=== PATIENT | male | born 1990 | race Caucasian/White ===

== ENCOUNTER 2023-01-13 23:22 | Emergency (ER) | payer OTHER, SELFPAY ==
[2023-01-13 23:25] VITALS: BP 154/88; PULSE 96; RESP 18; TEMP 37.3; O2SAT 98; BMI 23.6
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
--- NOTE | 2023-01-13 23:57 | CT_ITS ---
The [address] [address] Patient Name: ROSANGELA LAZO MRN: [id number] date: 1990 Sex: M Assigned Patient Location: ER Current Patient Location: ER Accession/Order Number: [id number] Exam Date: 01/13/2023 23:59 Report Date: 01/14/2023 00:40 At the request of: VEENA OLIVAREZ Procedure: CT chest wo con EXAM: CT CHEST WITHOUT CONTRAST HISTORY: Shortness of breath COMPARISON: None. TECHNIQUE: Multiple axial images are taken from the level the thyroid down to the upper abdomen without the use of IV contrast. Images were then reconstructed in the sagittal and coronal planes. This exam was performed according to our departmental dose-optimization program which includes use of Automated Exposure Control, adjustment of the mA and/or kV according to patient size and/or use of iterative reconstruction technique. FINDINGS: Evaluation limited due to lack of IV contrast. Lines and tubes: None. Lungs: Lungs are hyperexpanded with bronchiectasis. Calcifications are seen in the posterior left lung / granulomas demonstrated. Trachea/Main Bronchi: Well aerated. No intraluminal mass. Esophagus: Decompressed. Pleura: No pneumothorax. No pneumomediastinum.. No effusion. Heart: Normal. . Aorta: Normal. Pulmonary Artery: Normal in size. Further evaluation is limited due to lack of IV contrast. Lymph Nodes: Normal. Chest Wall: Normal. Thyroid: Normal. Osseous: Within normal limits for patient's age. Subdiaphragmatic: The subdiaphragmatic abdominal organs included in the [id number] do not demonstrate any acute abnormality, allowing for decompressed gallbladder. CT/CT chest wo con IMPRESSION: Unremarkable non-contrast CT scan of the chest Electronically authenticated by: АЛЕКСАНДР CARTER Date: 01/14/2023 00:40
[2023-01-14 00:44] LABS: Basophils Absolute Auto 0.1 10^3/uL (0.0-0.1); Basophils Percent Auto 0.6 % (0.2-2.0); Eosinophils Absolute Auto 0.1 10^3/uL (0.0-0.7); Hematocrit 45.2 % (42.0-54.0); Hemoglobin 15.6 g/dL (14.0-18.0); Immature Granulocytes Abs Auto 0.03 10^3/uL (0.00-0.03); Immature Granulocytes Pct Auto 0.3 % (0.0-0.5); Lymphocytes Absolute Auto 3.2 10^3/uL (1.2-3.8); Lymphocytes Percent Auto 30.9 % (20.5-60.0); Mean Corpuscular HGB Conc 34.5 g/dL (29.9-35.2); Mean Corpuscular Hemoglobin 29.7 pg (25.9-34.0); Mean Corpuscular Volume 86.1 fL (80.0-94.0); Mean Platelet Volume 9.6 fL (9.5-13.5); Monocytes Absolute Auto 0.7 10^3/uL (0.3-0.8); Monocytes Percent Auto 6.9 % (1.7-12.0); Neutrophils Absolute Auto 6.3 10^3/uL (1.4-6.5); Neutrophils Percent Auto 60.3 % (43.0-75.0); Platelet Count 217 10^3/uL (150-450); Red Blood Count 5.25 10^6/uL (4.70-6.10); Red Cell Distribution Width 12.9 % (11.0-15.0); White Blood Count 10.5 10^3/uL (4.0-11.0)
[2023-01-14 01:25] LABS: Alanine Aminotransferase 34 U/L (16-63); Albumin Globulin Ratio 0.9; Albumin Level 3.9 g/dL (3.4-5.0); Alkaline Phosphatase 112 U/L (46-116); Anion Gap 8.6; Aspartate Amino Transferase 8 U/L (15-37); BUN Creatinine Ratio 11.8; Bilirubin Total 0.4 mg/dL (0.2-1.0); Calcium 8.8 mg/dL (8.5-10.1); Carbon Dioxide 27.8 mmol/L (21.0-32.0); Chloride 105 mmol/L (98-107); Estimated GFR (African America >60 (>=60); Estimated GFR (Non-African Ame >60 (>=60); Globulin 4.2 g/dL; Glucose 103 mg/dL (74-106); Potassium 4.4 mmol/L (3.5-5.1); Sodium 137 mmol/L (136-145); Total Protein 8.1 g/dL (6.4-8.2)
== END 2023-01-14 01:54 | disposition home or self-care (01) ==
PROVIDERS: Emergency Provider Internal Medicine
DX: S20.222A Contusion of left back wall of thorax, initial encounter (principal); S06.0X1A Concussion with loss of consciousness of 30 minutes or less, initial encounter; Y04.0XXA Assault by unarmed brawl or fight, initial encounter; F17.210 Nicotine dependence, cigarettes, uncomplicated
CPT/HCPCS: 36415; 70450; 71250; 72125; 80053; 85025; 99284